=== PATIENT | female | born 1955 | race Caucasian/White ===

== ENCOUNTER 2021-06-22 08:38 | Outpatient (CLI) | payer MEDICARE, OTHER, SELFPAY ==
--- NOTE | 2021-06-22 08:48 | MM_ITS ---
WS: [id number] Exam: [place] [id number] Date/Time of Exam: 06/22/2021 8:50 AM Reason For Exam: SCREENING VIEWS: MLO and CC views both breasts. Comparison made with prior exam of 04/17/2018, 05/20/2019,. Findings: There is a new area of pleomorphic microcalcification in the right breast at about the 2:00 position. This is very suspicious for malignancy. This area measures approximately 2.3 x 2.5 cm. An associated ill-defined parenchymal density is noted within this region. There were no new suspicious findings i n the left breast. Scattered fibroglandular densities MM/[place] [id number] Impression: BI-RADS: 4-Suspicious Finding-Biopsy Should Be Considered FOLLOW-UP: Biopsy Recommended This mammogram was also analyzed by the Computer Aided Detection System R2 Imag e Front Counter Attendant. BI-RADS 4 -- suspicious abnormality, biopsy recommended
== END 2021-06-22 08:39 | disposition home or self-care (01) ==
PROVIDERS: PCP Internal Medicine; Visit Provider Internal Medicine
DX: Z12.31 Encounter for screening mammogram for malignant neoplasm of breast (principal)
CPT/HCPCS: 77067

== ENCOUNTER 2021-06-26 14:16 | Outpatient (CLI) | payer MEDICARE, OTHER, SELFPAY ==
--- NOTE | 2021-06-26 14:20 | US_ITS ---
WS: [id number] ADDITIONAL VIEWS RIGHT BREAST RIGHT breast ultrasound, limited HISTORY: MICROCALCIFICATIONS AND DENSITY COMPARISON: 06/22/2021, 05/20/2019 Magnification views right CC and MLO projection. True ML also submitted. Pleomorphic, branching calcifications in a linear distribution following along the ducts and branchin g in the superior RIGHT breast near 12-1 o'clock. The row of calcifications measures 4.6 x 2.0 cm and is highly suspicious. RIGHT breast ultrasound: No definite soft tissue mass associated with the calcifications. There is a vague area of distortion near 1:00 probably correlates with the calcifications. US/US breast RT limited* [id number] IMPRESSION: BI-RADS: 5-Highly Suggestive of Malignancy FOLLOW-UP: Biopsy Recommended Stereotactic biopsy recommended of calcifications RIGHT breast. Notified Ovidio Galaviz DO at 06/26/2021 3:38 PM. Report given with Suzanne .
== END 2021-06-26 14:17 | disposition home or self-care (01) ==
PROVIDERS: PCP Internal Medicine; Visit Provider Internal Medicine
DX: R92.1 Mammographic calcification found on diagnostic imaging of breast (principal)
CPT/HCPCS: 76642; 77065

== ENCOUNTER 2021-07-03 11:44 | Outpatient (CLI) | payer MEDICARE, OTHER, SELFPAY ==
--- NOTE | 2021-07-03 11:58 | MM_ITS ---
WS: [id number] STEREOTACTIC RIGHT BREAST BIOPSY WITH VACUUM ASSISTANCE. History: Heterogeneous RIGHT breast calcifications. Biopsy recommended for suspicious calcifications. Procedure, risks, and complications were discussed the patient who agreed to proceed. Prior imaging w as reviewed. Cluster of calcifications within the right breast are localized. Stereotactic imaging was performed. Patient was prepped and draped in usual sterile fashion. After 1% lidocaine, calcifications were targ eted stereotactically in the right breast. Small incision was made. Needle advanced into the cluster of calcifications right breast with imaging demonstrating appropriate position relative to the calcif ications. Multiple vacuum-assisted core biopsies were obtained. Postprocedure imaging demonstrates ca lcifications within the biopsy specimen. The biopsy cavity was lavaged. Titanium clip was placed at the biopsy site. Postprocedure imaging dem onstrates clip in good position. No immediate complications. MM/[place] [id number] IMPRESSION: 1. Uncomplicated vacuum-assisted stereotactic biopsy of calcifications in the RIGHT breast. Pathology: A. 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 -Microcalcifications. -Breast prognostic profile is pending. RECOMMEND BREAST SURGERY CONSULTATION FOR SURGICAL RESECTION
--- NOTE | 2021-07-03 11:58 | MM_ITS ---
WS: [id number] STEREOTACTIC RIGHT BREAST BIOPSY WITH VACUUM ASSISTANCE. History: Heterogeneous RIGHT breast calcifications. Biopsy recommended for suspicious calcifications. Procedure, risks, and complications were discussed the patient who agreed to proceed. Prior imaging w as reviewed. Cluster of calcifications within the right breast are localized. Stereotactic imaging was performed. Patient was prepped and draped in usual sterile fashion. After 1% lidocaine, calcifications were targ eted stereotactically in the right breast. Small incision was made. Needle advanced into the cluster of calcifications right breast with imaging demonstrating appropriate position relative to the calcif ications. Multiple vacuum-assisted core biopsies were obtained. Postprocedure imaging demonstrates ca lcifications within the biopsy specimen. The biopsy cavity was lavaged. Titanium clip was placed at the biopsy site. Postprocedure imaging dem onstrates clip in good position. No immediate complications. MM/MM surgical specimen RT IMPRESSION: 1. Uncomplicated vacuum-assisted stereotactic biopsy of calcifications in the RIGHT breast. Pathology: A. 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 -Microcalcifications. -Breast prognostic profile is pending. RECOMMEND BREAST SURGERY CONSULTATION FOR SURGICAL RESECTION
--- NOTE | 2021-07-03 11:58 | MM_ITS ---
WS: [id number] STEREOTACTIC RIGHT BREAST BIOPSY WITH VACUUM ASSISTANCE. History: Heterogeneous RIGHT breast calcifications. Biopsy recommended for suspicious calcifications. Procedure, risks, and complications were discussed the patient who agreed to proceed. Prior imaging w as reviewed. Cluster of calcifications within the right breast are localized. Stereotactic imaging was performed. Patient was prepped and draped in usual sterile fashion. After 1% lidocaine, calcifications were targ eted stereotactically in the right breast. Small incision was made. Needle advanced into the cluster of calcifications right breast with imaging demonstrating appropriate position relative to the calcif ications. Multiple vacuum-assisted core biopsies were obtained. Postprocedure imaging demonstrates ca lcifications within the biopsy specimen. The biopsy cavity was lavaged. Titanium clip was placed at the biopsy site. Postprocedure imaging dem onstrates clip in good position. No immediate complications. MM/MM biopsy RT vac assist [id number] IMPRESSION: 1. Uncomplicated vacuum-assisted stereotactic biopsy of calcifications in the RIGHT breast. Pathology: A. 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 -Microcalcifications. -Breast prognostic profile is pending. RECOMMEND BREAST SURGERY CONSULTATION FOR SURGICAL RESECTION
[2021-07-03 12:54] LABS: INR 0.88 (0.8-1.2)
[2021-10-08 11:04] LABS: Miscellaneous Test See Scanned Lab Rpt
== END 2021-07-03 11:45 | disposition home or self-care (01) ==
LOC: RADSHAW 11:49
PROVIDERS: PCP Internal Medicine; Visit Provider Internal Medicine
DX: Z01.812 Encounter for preprocedural laboratory examination (principal); R92.1 Mammographic calcification found on diagnostic imaging of breast; N63.15 Unspecified lump in the right breast, overlapping quadrants; D05.11 Intraductal carcinoma in situ of right breast
CPT/HCPCS: 19081; 77065; 85610; 88305; 88361; 88367; 88374; J7050

== ENCOUNTER 2022-12-30 14:08 | Outpatient (CLI) | payer MEDICARE, OTHER, SELFPAY ==
--- NOTE | 2022-12-30 14:19 | XR_ITS ---
WS: [id number] SCREENING DEXA SCAN Scope 5 CLINICAL INFORMATION: SCREENING FOR OSTEOPOROSIS COMPARISON: None. FINDINGS: The L1-L4 bone mineral density measures 0.921 g/cm2. This corresponds to a T score score of -2.2 and Z score of -0.9. Left femoral neck bone mineral density measures 0.691 g/cm2. This corresponds to a T score of -2.5 an d Z score of -1.4. Right femoral neck bone mineral density measures 0.716 g/cm2. This corresponds to a T score -2.3of an d Z score of -1.2. Mean femoral neck bone mineral density measures 0.704 g/cm2. This corresponds to a T score of -2.4 an d Z score of -1.3. XR/XR DEXA axial skeleton* [id number] IMPRESSION: Osteopenia lumbar spine. Osteopenia femoral necks at the upper end of the range . Patient's FRAX calculated 10 year probability for major osteoporotic fracture is 25.4 % and osteoporotic hip fracture is 8.9%.
== END 2022-12-30 14:09 | disposition home or self-care (01) ==
LOC: RAD 14:13
PROVIDERS: PCP Internal Medicine; Visit Provider Surgery
DX: Z13.820 Encounter for screening for osteoporosis (principal); M85.89 Other specified disorders of bone density and structure, multiple sites
CPT/HCPCS: 77080

== ENCOUNTER 2025-06-13 14:34 | Outpatient (CLI) | payer MEDICARE, OTHER, SELFPAY ==
--- NOTE | 2025-06-13 14:44 | XR_ITS ---
WS: [id number] SCREENING DEXA SCAN [facility] CLINICAL INFORMATION: OSTEOPENIA COMPARISON: 2022 FINDINGS: The L1-L4 bone mineral density measures 0.891 g/cm2. This corresponds to a T score score of -2.4 and Z score of -1.1. Left femoral neck bone mineral density measures 0.681 g/cm2. This corresponds to a T score of -2.6 and Z score of -1.3. Right femoral neck bone mineral density measures 0.715 g/cm2. This corresponds to a T score -2.3of and Z score of -1.1. Mean femoral neck bone mineral density measures 0.698 g/cm2. This corresponds to a T score of -2.5 and Z score of -1.2. XR/XR DEXA axial skeleton* [id number] IMPRESSION: Osteopenia lumbar spine. Osteoporosis femoral necks. Patient's FRAX calculated 10 year probability for major osteoporotic fracture i s 27.5% and osteoporotic hip fracture is 13.5%. Bone density lumbar spine decrease -3.3% Bone density femoral necks decreased -0.9%
== END 2025-06-13 14:35 | disposition home or self-care (01) ==
LOC: RAD 14:37
PROVIDERS: PCP Family Medicine; Referring Provider Surgery; Visit Provider Family Medicine
DX: Z13.820 Encounter for screening for osteoporosis (principal); M81.0 Age-related osteoporosis without current pathological fracture
CPT/HCPCS: 77080